=== PATIENT | female | born 1965 | race Caucasian/White ===

== ENCOUNTER 2016-12-16 12:05 | Emergency (ER) | payer OTHER ==
[2016-12-16 14:13] LABS: RED BLOOD COUNT 4.74 M/UL (4.00-5.10); WHITE BLOOD COUNT 5.4 K/UL (4.5-11.0)
[2016-12-16 15:30] LABS: BUN/CREATININE RATIO 9 (0-10)
== END 2016-12-16 15:49 | disposition home or self-care (01) ==
LOC: ER1 12:05
PROVIDERS: Emergency Medicine
DX: T81.30XA Disruption of wound, unspecified, initial encounter (principal); F17.200 Nicotine dependence, unspecified, uncomplicated; Y83.9 Surgical procedure, unspecified as the cause of abnormal reaction of the patient, or of later complication, without mention of misadventure at the time of the procedure
CPT/HCPCS: 36415; 80048; 83605; 85025; 96365; 99283; J2543; J7050